=== PATIENT | male | born 1955 | race Caucasian/White ===

== ENCOUNTER 2018-06-28 17:44 | Inpatient (IN) | payer BC, MEDICAID, OTHER ==
[~2018-06-28] VITALS: Ht 185.4 cm; Wt 114.8 kg
[2018-06-28] MEDS ORDERED: HYDROcodone/APAP 5/325 TABLET PO ONE (18:30)
[2018-06-28 18:38] LABS: BASOPHILS # (AUTO) 0.12 x10^3/uL (0-0.1); BASOPHILS % (AUTO) 1 % (0-1); EOSINOPHILS # (AUTO) 0.21 x10^3/uL (0-0.4); EOSINOPHILS % (AUTO) 2 % (1-7); LYMPHOCYTES # (AUTO) 1.72 x10^3/uL (1-3.4); LYMPHOCYTES % (AUTO) 15 % (22-44); MD NO; MEAN CORPUSCULAR HEMOGLOBIN 26.7 pg (27.5-34.5); MEAN CORPUSCULAR HGB CONC 32.6 g/dL (33.2-36.2); MEAN CORPUSCULAR VOLUME 81.7 fL (81-97); MEAN PLATELET VOLUME 8.1 fL (7.4-10.4); MONOCYTES # (AUTO) 0.99 x10^3/uL (0.2-0.8); MONOCYTES % (AUTO) 8 % (2-9); NEUTROPHILS # (AUTO) 8.75 x10^3/uL (1.8-6.8); NEUTROPHILS % (AUTO) 74 % (42-75); PLATELET COUNT 297 x10^3/uL (130-400); RED BLOOD COUNT 5.82 x10^6/uL (4.38-5.82); RED CELL DISTRIBUTION WIDTH 16.6 % (9.4-14.8)
[2018-06-28] MEDS ORDERED: HYDROcodone/APAP 5/325 TABLET ONE (18:40)
[2018-06-28 18:43] LABS: ALBUMIN 3.9 g/dL (3.4-5.0); ANION GAP 6 mmol/L (5-15); CALCIUM 9.4 mg/dL (8.5-10.1); CHLORIDE 107 mmol/L (98-107); CREATININE 1.25 mg/dL (0.7-1.3)
[2018-06-28 18:46] LABS: MICROSCOPIC NOT IND
[2018-06-28 18:47] LABS: CULTURE INDICATED? NO
[2018-06-28 19:19] LABS: ALBUMIN 3.7 g/dL (3.4-5.0); BILIRUBIN, DIRECT 0.2 mg/dL (0.1-0.2)
[2018-06-28 19:21] LABS: BILIRUBIN,INDIRECT 0.4 mg/dL (0.0-2.0); BILIRUBIN,TOTAL 0.6 mg/dL (0.2-1.0); TOTAL PROTEIN 7.8 g/dL (6.4-8.2)
[2018-06-28] MEDS ORDERED: OMNIPAQUE 350 MG/ML, 100ML BOTTLE ONE (20:02)
[2018-06-28] MEDS ORDERED: AZITHROMYCIN 500 MG in SODIUM CHLORIDE 0.9% 250 ML IV ONE (20:30)
[2018-06-28] MEDS ORDERED: CEFTRIAXONE PMX 1GM/50ML 50 ML IV ONE (20:30)
[2018-06-28] MEDS ORDERED: CEFTRIAXONE PMX 1GM/50ML 50 ML ONE (20:34)
[2018-06-28] MEDS ORDERED: SITA100T PO (20:42)
[2018-06-28] MEDS ORDERED: CLOP75TA PO (20:42)
[2018-06-28] MEDS ORDERED: LISI-167 PO (20:42)
[2018-06-28] MEDS ORDERED: ASPI-496 PO (20:42)
[2018-06-28] MEDS ORDERED: METO50TA4 PO (20:42)
[2018-06-28] MEDS ORDERED: ATOR-2 PO (20:42)
[2018-06-28] MEDS ORDERED: METF500T17 PO (20:42)
[2018-06-28] MEDS ORDERED: hydrALAzine 20 MG/ML, 1ML IVPush PRN (21:30)
[2018-06-28] MEDS ORDERED: ONDANSETRON ODT 4 MG PO PRN (21:30)
[2018-06-28] MEDS ORDERED: DOCUSATE 100 MG CAPSULE PO PRN (21:30)
[2018-06-28] MEDS ORDERED: LIDODERM 5% PATCH TD PRN (21:30)
[2018-06-28] MEDS ORDERED: KETOROLAC 30 MG/1 ML IV PRN (21:30)
[2018-06-28] MEDS ORDERED: TEMAZEPAM 15 MG CAPSULE PO PRN (21:30)
[2018-06-28] MEDS ORDERED: ENOXAPARIN 40 MG/0.4 ML SQ SCH (22:30)
[2018-06-28 22:38] VITALS: BP 135/88
[2018-06-28] MEDS: HYDROcodone/APAP 5/325 TABLET PO PRN (23:38)
[2018-06-28] MEDS: GUAIFENESIN/DM 200-20MG, 10ML UDC PO PRN (23:38)
[2018-06-29 01:16] VITALS: BP 136/81
[2018-06-29] MEDS: HYDROcodone/APAP 5/325 TABLET PO PRN ×2 (05:27→09:49)
[2018-06-29 07:00] VITALS: BP 127/67
[2018-06-29] MEDS: INSULIN LISPRO 100 UNITS/ML, PEN SQ-INSULIN SCH ×2 (07:00→11:00)
[2018-06-29] MEDS ORDERED: CEFTRIAXONE PMX 1GM/50ML 50 ML IV SCH (09:30)
[2018-06-29] MEDS: GUAIFENESIN/DM 200-20MG, 10ML UDC PO PRN (09:49)
[2018-06-29] MEDS ORDERED: IBUPROFEN 600 MG TABLET PO SCH (12:30)
[2018-06-29] MEDS ORDERED: IBUP-1222 PO (12:48)
[2018-06-29] MEDS ORDERED: AZIT500T5 PO (12:48)
[2018-06-29] MEDS ORDERED: HYDR-3240 PO (12:48)
[2018-06-29] MEDS ORDERED: CEFD300C37 PO (12:48)
[2018-06-29] MEDS ORDERED: AZITHROMYCIN 500 MG in SODIUM CHLORIDE 0.9% 250 ML IV SCH (20:00)
== END 2018-06-29 14:14 | disposition home or self-care (01) | DRG 438 ==
LOC: ED 21:47 → EDIP 21:52 → 3NE 22:04
PROVIDERS: ADMIT Internal Medicine; ATTEND Family Medicine
DX: K85.90 Acute pancreatitis without necrosis or infection, unspecified (principal); J18.1 Lobar pneumonia, unspecified organism; S22.42XA Multiple fractures of ribs, left side, initial encounter for closed fracture; G89.11 Acute pain due to trauma; Z87.891 Personal history of nicotine dependence; W01.0XXA Fall on same level from slipping, tripping and stumbling without subsequent striking against object, initial encounter; I10 Essential (primary) hypertension; E78.5 Hyperlipidemia, unspecified; E11.9 Type 2 diabetes mellitus without complications; S61.552A Open bite of left wrist, initial encounter; Z95.5 Presence of coronary angioplasty implant and graft; W55.01XA Bitten by cat, initial encounter; Z80.6 Family history of leukemia; I25.2 Old myocardial infarction; Z88.2 Allergy status to sulfonamides; Y93.89 Activity, other specified; Y92.89 Other specified places as the place of occurrence of the external cause; Y99.8 Other external cause status
CPT/HCPCS: 36415; 71260; 74177; 80048; 80076; 81003; 82040; 82962; 83690; 85025; 87040; 93005; 96365; G0378; J0456; J0696; J1885; Q9967; J7050